=== PATIENT | female | born 1985 | race Caucasian/White ===

== ENCOUNTER 2021-08-13 17:48 | Emergency (ER) | payer OTHER, MEDICAID ==
[~2021-08-13] VITALS: Ht 162.6 cm; Wt 77.3 kg
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
[2021-08-13] MEDS ORDERED: acetaminophen 325mg tablet PO ONE (22:10)
[2021-08-13] MEDS ORDERED: ibuprofen tablet 400 MG TABLET PO ONE (22:10)
[2021-08-13 22:22] VITALS: BP 129/84
== END 2021-08-13 22:24 | disposition home or self-care (01) ==
LOC: ER 17:48
DX: G89.18 Other acute postprocedural pain (principal); R10.32 Left lower quadrant pain; Z90.79 Acquired absence of other genital organ(s); Z91.040 Latex allergy status; Z87.59 Personal history of other complications of pregnancy, childbirth and the puerperium
CPT/HCPCS: 99283

== ENCOUNTER 2021-10-10 00:10 | Emergency (ER) | payer OTHER, MEDICAID ==
[~2021-10-10] VITALS: Ht 162.6 cm; Wt 75.0 kg
[2021-10-10 05:40] VITALS: BP 132/84
== END 2021-10-10 05:57 | disposition home or self-care (01) ==
LOC: ER 00:11
DX: J02.9 Acute pharyngitis, unspecified (principal); R05.9 Cough, unspecified; F12.90 Cannabis use, unspecified, uncomplicated; Z98.890 Other specified postprocedural states; Z91.040 Latex allergy status
CPT/HCPCS: 99281